=== PATIENT | male | born 1985 | race Caucasian/White ===

== ENCOUNTER 2021-09-10 01:39 | Emergency (ER) | payer OTHER ==
[~2021-09-10] VITALS: Ht 167.6 cm; Wt 68.0 kg
[2021-09-10 02:05] VITALS: BP 129/75
[2021-09-10] MEDS ORDERED: ACETAMINOPHEN 325 MG TABLET ONE (02:58)
[2021-09-10] MEDS ORDERED: ACETAMINOPHEN 325 MG TABLET PO ONE (03:00)
--- NOTE | 2021-09-10 04:34 | NUR ---
CALLED CORNELIO TO HAVE IMAGES READ
[2021-09-10] MEDS ORDERED: ACET-2605 PO (05:15)
--- NOTE | 2021-09-10 05:26 | NUR ---
Patient discharged to home in stable condition. Written and verbal after care instructions given. Patient verbalizes understanding of instruction. pT ambulatory with a steady gait
== END 2021-09-10 05:26 | disposition home or self-care (01) ==
LOC: ER 01:44
DX: S90.852A Superficial foreign body, left foot, initial encounter (principal); M77.31 Calcaneal spur, right foot; M79.672 Pain in left foot; M79.671 Pain in right foot; G40.909 Epilepsy, unspecified, not intractable, without status epilepticus; F17.200 Nicotine dependence, unspecified, uncomplicated; Z59.00 Homelessness unspecified; X58.XXXA Exposure to other specified factors, initial encounter; Y93.89 Activity, other specified; Y92.89 Other specified places as the place of occurrence of the external cause; Y99.8 Other external cause status
CPT/HCPCS: 73610-TC; 73620-TC